=== PATIENT | male | born 1960 | race African-American/Black ===

== ENCOUNTER 2018-06-25 13:41 | Emergency (ER) | payer BC, OTHER ==
[2018-06-25 13:53] VITALS: BP 130/72; PULSE 76; TEMP 98.1; BMI 30.2
--- NOTE | 2018-06-25 14:22 | PDOC ---
History of Present Illness - General Chief Complaint: Edema Stated Complaint: HAND SWELLING Time Seen by Provider: 06/25/18 14:00 History Source: Patient Exam Limitations: No Limitations - History of Present Illness Initial Comments: 06/25/18 14:20 pt with paronychia right middle digit for 3 days admits to cutting cuticles short. no fever Past History - Past Medical History Allergies/Adverse Reactions: Allergies Allergy/AdvReac Type Severity Reaction Status Date / Time No Known Allergies Allergy Verified 06/25/18 13:49 Home Medications: Ambulatory Orders NK [No Known Home Medication] 06/25/18 - Suicide/Smoking/Psychosocial Hx Smoking History: Never smoked Hx Alcohol Use: No Substance Use Type: None Review of Systems - Review of Systems Able to Perform ROS?: Yes Is the patient limited Lao proficient: No Integumentary: Yes: Symptoms Reported *Physical Exam - Vital Signs Last Vital Signs Temp Pulse Resp BP Pulse Ox 98.1 F 76 14 130/72 99 06/25/18 13:51 06/25/18 13:51 06/25/18 13:51 06/25/18 13:51 06/25/18 13:51 - Physical Exam General Appearance: Yes: Nourished, Appropriately Dressed Extremity: positive: Normal Capillary Refill, Other (right middle digit with paronychia to the tip ) Integumentary: positive: Normal Color, Dry, Warm Neurologic: positive: accounting systems analyst II-XII NML intact, Fully Oriented, Alert, Normal Mood/ Affect, Motor Strength 5/5 Procedures - Incision and Drainage I&D Site: Right: Paronychia (middle digit ) Betadine cleansed: Yes Blade Size: 18 gauge needle Complications: none Dressing: Yes Medical Decision Making - Medical Decision Making 06/25/18 14:21 cc: paronychia right middle digit for 2-3 days wound cleaned with betadine drained without incident yellow green pus dressing placed *DC/Admit/Observation/Transfer Diagnosis at time of Disposition: Paronychia of finger of right hand - Discharge Dispostion Disposition: HOME Condition at time of disposition: Good - Referrals Referrals: Spike Leonardo MD [Primary Care Provider] - Andrea Falcon MD [Staff Physician] - - Patient Instructions Additional Instructions: soak finger in warm soapy water 4 times daily for 10-15 minutes apply bacitracin and bandaid daily until healed follow with a hand surgeon if symptoms continue, worsen - Post Discharge Activity
== END 2018-06-25 14:30 | disposition home or self-care (01) ==
LOC: JERFT 13:41
PROC: 0J9J0ZZ Drainage of Right Hand Subcutaneous Tissue and Fascia, Open Approach (ICD-10-PCS; principal; 2018-06-25)
DX: L03.011 Cellulitis of right finger (principal)
CPT/HCPCS: 99281-25